=== PATIENT | male | born 1995 | race African-American/Black ===

== ENCOUNTER 2020-08-08 10:26 | Emergency (ER) | payer SELFPAY ==
--- NOTE | 2020-08-08 11:25 | ER Document Report ---
ED Medical Screen (RME) - General Chief Complaint: Breathing Difficulty Stated Complaint: BREATHING PROBLEMS Time Seen by Provider: 08/08/20 11:19 TRAVEL OUTSIDE OF THE [place] IN LAST 30 DAYS: No - HPI Notes: 08/08/20 11:23 25-year-old male to the emergency department with complaints of shortness of breath that is been ongoing for the past 3 days. Of note patient had fevers, body aches, loss of smell and taste about 1 week ago. He states that he has had exposure to possible Covid. He works in a [employer]. He states that 2 of his other work colleagues tested positive for Covid. He states he felt really bad last week and does not feel necessarily as bad this week however he is extremely short of breath. He states every time he tries to walk upstairs he cannot catch his breath. He states that he is coughing a little bit but not a significant amount. He states that when he takes a big deep breath then he has pain in his chest. He does have a past medical history for asthma but has not had a problem since he was a child. He does not smoke. The patient was evaluated during the global COVID 19 pandemic, and that diagnosis was suspected/considered upon their initial presentation. Their evaluation, treatment, and testing was consistent with current guidelines for patients who present with complaints or symptoms that may be related to COVID-19. I performed a brief medical screening exam on the patient determined that the patient needs further evaluation and management by main side provider. I have placed initial orders to help expedite care. - Related Data Allergies/Adverse Reactions: No Known Allergies Allergy (Verified 08/08/20 11:16) Physical Exam - Vital signs Vitals: Temp Pulse Resp BP Pulse Ox 98.6 F 80 16 141/74 H 99 08/08/20 10:34 08/08/20 10:34 08/08/20 10:34 08/08/20 10:34 08/08/20 10:34 Course - Vital Signs Vital signs: Temp Pulse Resp BP Pulse Ox 98.6 F 80 16 141/74 H 99 08/08/20 10:34 08/08/20 10:34 08/08/20 10:34 08/08/20 10:34 08/08/20 10:34
[2020-08-08 11:57] LABS: ABSOLUTE EOSINOPHILS # (AUTO) 0.1 10^3/uL (0.0-0.6); ABSOLUTE LYMPHOCYTES (AUTO) 1.7 10^3/uL (0.5-4.7); ABSOLUTE MONOCYTES (AUTO) 0.7 10^3/uL (0.1-1.4); ABSOLUTE NEUT (AUTO) 3.2 10^3/uL (1.7-8.2); BASOPHILS % (AUTO) 0.8 % (0-2); EOSINOPHILS % (AUTO) 0.9 % (0-6); HEMATOCRIT 39.9 % (37.9-51.0); HEMOGLOBIN 13.8 g/dL (13.5-17.0); LYMPHOCYTES % (AUTO) 29.9 % (13-45); MEAN CORPUSCULAR HEMOGLOBIN 29.2 pg (27.0-33.4); MEAN CORPUSCULAR HGB CONC 34.6 g/dL (32.0-36.0); MEAN CORPUSCULAR VOLUME 84 fl (80-97); MONOCYTES % (AUTO) 12.5 % (3-13); PLATELET COUNT 255 10^3/uL (150-450); RED BLOOD COUNT 4.73 10^6/uL (4.35-5.55); RED CELL DISTRIBUTION WIDTH 12.8 % (11.5-14.0); SEGMENTED NEUTROPHILS % (AUTO) 55.9 % (42-78); TOTAL CELLS COUNTED % (AUTO) 100 %; WHITE BLOOD COUNT 5.8 10^3/uL (4.0-10.5)
[2020-08-08 12:03] LABS: INTERNATIONAL RATION (INR) 1.03; PROTHROMBIN TIME 13.7 SEC (11.4-15.4)
[2020-08-08 12:04] LABS: PARTIAL THROMBOPLASTIN TIME 29.6 SEC (23.5-35.8)
[2020-08-08 12:09] LABS: ALBUMIN 4.4 g/dL (3.5-5.0); ALKALINE PHOSPHATASE 82 U/L (38-126); ANION GAP 12 (5-19); ASPARTATE AMINO TRANSFERASE 57 U/L (17-59); BILIRUBIN,DIRECT 0.1 mg/dL (0.0-0.4); BILIRUBIN,TOTAL 0.9 mg/dL (0.2-1.3); BLOOD UREA NITROGEN 11 mg/dL (7-20); CALCIUM 9.3 mg/dL (8.4-10.2); CARBON DIOXIDE 24 mmol/L (22-30); CHLORIDE 104 mmol/L (98-107); GLUCOSE 92 mg/dL (75-110); POTASSIUM 4.6 mmol/L (3.6-5.0); TOTAL PROTEIN 8.3 g/dL (6.3-8.2)
--- NOTE | 2020-08-08 12:10 | ER Document Report ---
ED Respiratory Problem - General Chief Complaint: Shortness Of Breath Stated Complaint: BREATHING PROBLEMS Time Seen by Provider: 08/08/20 11:19 Notes: CHIEF COMPLAINT: Cough and shortness of breath HPI: 25-year-old male presenting to the emergency department complaining of 2 to 3 days of worsening cough and shortness of breath. Reports some pain with coughing and deep breathing. Patient states he was sick last week with upper respiratory symptoms with a fever runny nose and cough which seem to get better for several days before getting worse. Does not currently have fever. ROS: See HPI - all other systems were reviewed and are otherwise negative Constitutional: no fever Eyes: no drainage, no blurred vision ENT: no runny nose, no sore throat Cardiovascular: + chest pain with cough Resp: + SOB, + cough GI: no vomiting, no diarrhea, no abdominal pain : no dysuria Integumentary: no rash Allergy: no hives Musculoskeletal: no extremity pain or swelling Neurological: no numbness/tingling, no weakness MEDICATIONS: I agree with the patient medications as charted by the RN. ALLERGIES: I agree with the allergies as charted by the RN. PAST MEDICAL HISTORY/PAST SURGICAL HISTORY: Reviewed and agree as charted by RN. SOCIAL HISTORY: Reviewed and agree as charted by RN. FAMILY HISTORY: No significant familial comorbid conditions directly related to patient complaint EXAM: Reviewed vital signs as charted by RN. CONSTITUTIONAL: Alert and oriented and responds appropriately to questions. Well-appearing; well-nourished HEAD: Normocephalic; atraumatic EYES: PERRL; Conjunctivae clear, sclerae non-icteric ENT: normal nose; no rhinorrhea; moist mucous membranes; pharynx without lesions noted, no uvula edema or deviation, no tonsillar hypertrophy, phonation normal NECK: Supple without meningismus; non-tender; no cervical lymphadenopathy, no masses CARD: RRR; no murmurs, no clicks, no rubs, no gallops; symmetric distal pulses RESP: Normal chest excursion without splinting or tachypnea; breath sounds clear and equal bilaterally; no wheezes, no rhonchi, no rales, pulse oximetry 99% on room air not hypoxic. Congested cough noted ABD/GI: Normal bowel sounds; non-distended; soft, non-tender, no rebound, no guarding; no palpable organomegaly or masses. BACK: The back appears normal and is non-tender to palpation, there is no CVA tenderness EXT: Normal ROM in all joints; non-tender to palpation; no cyanosis, no e ffusions, no edema SKIN: Normal color for age and race; warm; dry; good turgor; no acute lesions noted NEURO: Moves all extremities equally; Motor and sensory function intact PSYCH: The patient's mood and manner are appropriate. Grooming and personal hygiene are appropriate. MDM: 25-year-old otherwise healthy male presenting with upper respiratory symptoms. Cough some chest discomfort with cough and shortness of breath. On chest x-ray noted to have a left lower lobe pneumonia on my review, this is consistent with the radiology review. His EKG is sinus rhythm with a ventricular rate of 75 GA 172 QT 360 QTC 402. Nonspecific T wave flattening in leads III and aVF. Borderline EKG. Interpreted by emergency department physicians. Will give Rocephin here in the emergency department given the pneumonia. Will obtain Covid test. Patient is not toxic appearing. We will plan to treat with antibiotics, albuterol, likely discharge TRAVEL OUTSIDE OF THE [place] IN LAST 30 DAYS: No - Related Data Allergies/Adverse Reactions: No Known Allergies Allergy (Verified 08/08/20 11:16) Past Medical History - Social History Smoking Status: Never Smoker Chew tobacco use (# tins/day): No Frequency of alcohol use: Occasional Drug Abuse: Marijuana Family History: Reviewed & Not Pertinent Patient has homicidal ideation: No Physical Exam - Vital signs Vitals: Temp Pulse Resp BP Pulse Ox 98.6 F 80 16 141/74 H 99 08/08/20 10:34 08/08/20 10:34 08/08/20 10:34 08/08/20 10:34 08/08/20 10:34 Course - Re-evaluation Re-evalutation: 08/08/20 13:16 Patient is noted to have a left lower lobe pneumonia on chest x-ray. He will be a person under investigation for COVID-19. I will give Rocephin in the emergency department. Patient will be discharged on Zithromax, Decadron, albut wilmar - Vital Signs Vital signs: Temp Pulse Resp BP Pulse Ox 98.6 F 80 16 141/74 H 99 08/08/20 10:34 08/08/20 10:34 08/08/20 10:34 08/08/20 10:34 08/08/20 10:34 - Laboratory Result Diagrams: 08/08/20 11:41 08/08/20 11:41 Laboratory results interpreted by me: 08/08/20 11:41 ALT 57 H Total Protein 8.3 H Discharge - Discharge Clinical Impression: Person under investigation for COVID-19 Pneumonia Qualifiers: Pneumonia type: due to unspecified organism Laterality: left Lung location: lower lobe of lung Qualified Code(s): J18.9 - Pneumonia, unspecified organism Condition: Stable Disposition: HOME, SELF-CARE Instructions: COVID-19 Guidance for Persons Under Investigation Additional Instructions: 1. take the medications as prescribed 2. if you were prescribed an Albuterol inhaler, use it as instructed, 2 puffs every 4 hours as needed for cough/wheezing 3. call your primary care provider as soon as possible to schedule recheck appt. in the office. 4. return to the ED for any worsening condition, shortness of breath or continued fever that does not resolve with Motrin/Tylenol 5. You are considered a person under investigation for COVID-19 at this time. Self quarantine at home pending your test results which may take 2 to 5 days. You should receive notification from the hospital about your test results. Prescriptions: Dexamethasone [Decadron 4 Mg Tablet] 4 mg PO DAILY #7 tablet Albuterol Sulfate [Proair HFA Inhalation Aerosol 8.5 gm MDI] 2 puff IH Q4H PRN #1 mdi PRN Reason: Azithromycin [Zithromax 250 mg Tablet] 250 mg PO ASDIR PRN #6 tablet PRN Reason: Referrals: NICKI ACKERMAN MD [ACTIVE STAFF] - Follow up as needed
[2020-08-08 12:21] LABS: NT PRO BNP 34 pg/mL (<125)
[2020-08-08 12:36] LABS: TROPONIN I < 0.012 ng/mL
--- NOTE | 2020-08-08 12:43 | RADIOLOGY REPORT (SQ) ---
EXAM DESCRIPTION: CHEST SINGLE VIEW IMAGES COMPLETED DATE/TIME: 08/08/2020 12:33 pm REASON FOR STUDY: SOB, fevers last week COMPARISON: None. EXAM PARAMETERS: NUMBER OF VIEWS: One view. TECHNIQUE: Single frontal radiographic view of the chest acquired. RADIATION DOSE: NA LIMITATIONS: None. FINDINGS: LUNGS AND PLEURA: Left lower lobe airspace disease most likely pneumonia. Lung alvarez are otherwise clear no effusions. MEDIASTINUM AND HILAR STRUCTURES: No masses. Contour normal. HEART AND VASCULAR STRUCTURES: Heart normal in size. Normal vasculature. BONES: No acute findings. HARDWARE: None in the chest. OTHER: No other significant finding. IMPRESSION: Left lower lobe infiltrate consistent with pneumonia. TECHNICAL DOCUMENTATION: JOB ID: [id number] 2010 [employer]- All Rights Reserved Reading location - IP/workstation name: [email or web address]
--- NOTE | 2020-08-08 12:43 | EKG REPORT ---
SEVERITY:- BORDERLINE ECG - SINUS RHYTHM NONSPECIFIC ST-T CHANGES- INFERIOR LEADS III AND AVF : Confirmed by: Kev Albarado MD 08-Aug-2020 12:43:13
[2020-08-08] MEDS ORDERED: CEFTRIAXONE INJ 1000 MG VIAL IM ONE (12:52)
[2020-08-08] MEDS ORDERED: LIDOCAINE 1% INJ (10 MG/ML) 10 ML MDV INJ ONE (12:52)
[2020-08-08] MEDS ORDERED: DEXAMETHASONE 4 MG TABLET PO ONE (12:53)
[2020-08-08 13:33] VITALS: BP 138/72
== END 2020-08-08 13:33 | disposition home or self-care (01) ==
LOC: ER 10:26
DX: J18.9 Pneumonia, unspecified organism (principal); R06.02 Shortness of breath; Z20.828 Contact with and (suspected) exposure to other viral communicable diseases
CPT/HCPCS: 93005; 99285; 96372; 36415; 85025; 85610; 85730; 80053; 84484; 83880; 71045; 93010; J8540; J0696